=== PATIENT | male | born 1955 | race Caucasian/White ===

== ENCOUNTER 2016-06-22 13:25 | Emergency (ER) | payer BC ==
[~2016-06-22] VITALS: Ht 188 cm; Wt 104.3 kg
[2016-06-22 13:30] VITALS: TEMP 36.8; Ht 188 cm; Wt 104.3 kg
[2016-06-22] MEDS ORDERED: ATOR-22 PO (13:57)
--- NOTE | 2016-06-22 13:57 | EMERGENCY ROOM VISIT NOTE ---
History First contact with patient: 13:32 Chief Complaint: RASH Stated Complaint: SHINGLES NEAR LEFT EYE History of Present Illness The patient is a 60 year old male who presents to the Emergency Room with complaints of shingles near the left eye. The patient reports that he has had a rash on the left forehead for the past 5 days. He states it is painful and rates the discomfort a 4/10. The patient was seen by his primary care provider yesterday and diagnosed with shingles. He states he was given a prescription for Bactrim and an anti-itch cream. He was not given a prescription for an antiviral medication. The patient reports that he was told if the rash gets closer to his eye, he should come here for evaluation. The patient reports that the rash has spread slightly towards his eyelid. He denies any difficulty with vision or pain in the eye itself. The patient denies any fevers/chills, numbness or weakness. Review of Systems A complete 10-point Review of Systems was discussed with the patient, with pertinent positives and negatives listed in the History of Present Illness. All remaining Review of Systems questions can be considered negative unless otherwise specified. Social History Smoking Status: Never Smoker Current/Historical Medications Scheduled Atorvastatin (Lipitor), 20 MG PO DAILY Valacyclovir Hcl (Valtrex), 1,000 MG PO TID Allergies Coded Allergies: No Known Allergies (Unverified , 06/22/16) Physical Exam Vital Signs Date Time Temp Pulse Resp B/P Pulse Ox O2 Delivery O2 Flow Rate FiO2 06/22/16 14:09 82 16 124/81 94 06/22/16 13:30 36.8 94 18 123/79 94 Room Air Right Eye Acuity: 20/20 Left Eye Acuity: 20/20 Physical Exam VITALS: Vitals are noted on the nurse's note and reviewed by myself. Vital signs stable. GENERAL: This is a 52-year-old male, in no acute distress, nondiaphoretic, well- developed well-nourished. SKIN: There is an erythematous vesicular rash to the left forehead which extends to the upper eyelid. There is an area of central erythema and mild edema. EYES: PERRLA, EOMs intact. Visual acuity 20/20 bilaterally. Slit-lamp examination revealed no corneal defects. There was no uptake of fluorescein stain seen under UV light. HEART: Regular rate and rhythm without murmurs gallops or rubs. LUNGS: Clear to auscultation bilaterally without wheezes, rales or rhonchi. NEURO: Patient was alert and oriented to person place and time. Medical Decision & Procedures Medical Decision The patient was evaluated as above. He was diagnosed with herpes zoster yesterday. The patient was sent here for concern about possible ocular involvement. Slit lamp examination fortunately did not reveal any corneal lesions. However, the patient will need very close follow-up with both his primary care provider and dielectric tester. Although the patient has had symptoms for approximately 5 days, I did feel that it may be beneficial to start him on an antiviral due to the close proximity of the patient's eye. He was given a prescription for Valtrex. He is instructed to return for any worsening of condition or new/concerning symptoms. He verbalized understanding why assessment and treatment plan was discharged home in good condition. Impression Primary Impression: Herpes zoster Departure Information Dispostion Home / Self-Care Condition GOOD Prescriptions Valacyclovir Hcl (VALTREX) 1 Gm Tab 1000 MG PO TID for 7 Days, #21 TAB Prov: Kimberly Travis .AYLIN 06/22/16 Referrals Diann Veloz M.D. (PCP) Patient Instructions [facility] Additional Instructions Valtrex as prescribed. Follow-up with your primary care provider tomorrow as scheduled. You should also follow-up with your established dielectric tester this week. Return to the emergency department with any worsening symptoms or eye involvement as we discussed.
[2016-06-22] MEDS ORDERED: VALA1TAB2 PO (14:01)
[2016-06-22 14:09] VITALS: BP 124/81; PULSE 82; O2SAT 94
== END 2016-06-22 14:10 | disposition home or self-care (01) ==
LOC: C.EDB 13:26 → C.EDD 14:10
DX: B02.9 Zoster without complications (principal); Z79.899 Other long term (current) drug therapy

== ENCOUNTER → 2016-08-30 | Outpatient (CLI) | payer BC ==
[~2016-08-30] MED LIST: ATOR-22 PO
[2016-08-30 09:57] LABS: % FREE PSA 15.9 %; FREE PSA 1.75 ng/ml
== END | disposition home or self-care (01) ==
LOC: C.LAB 07:17
PROVIDERS: ATTEND Urology
DX: N40.1 Benign prostatic hyperplasia with lower urinary tract symptoms (principal)

== ENCOUNTER → 2016-09-13 | Outpatient (CLI) | payer BC | END | disposition home or self-care (01) | LOC: C.LABSPEC 16:43 | PROVIDERS: ATTEND Nurse Practitioner Family | DX: N40.1 Benign prostatic hyperplasia with lower urinary tract symptoms (principal); R35.0 Frequency of micturition ==

== ENCOUNTER → 2016-12-21 | Outpatient (CLI) | payer BC ==
--- NOTE | 2016-12-21 14:25 | DIAGNOSTIC IMAGING REPORT ---
(TESTICULAR) SCROTUM-CONT CLINICAL HISTORY: 61 years-old Male presenting with scrotal lesion. TECHNIQUE: Real-time grayscale and color and spectral Doppler ultrasound imaging of the scrotum was performed. COMPARISON: None. FINDINGS: Right testis: Normal echogenicity and size, measuring 4.6 x 2.8 x 3.4 cm. Normal color Doppler flow and arterial and venous waveforms in the testicular parenchyma. Epididymis normal without evidence of hyperemia. Large hydrocele with low-level echoes. Left testis: Normal echogenicity and size, measuring 4.1 x 2.8 x 2.8 cm. Normal color Doppler flow and arterial and venous waveforms in the testicular parenchyma. Epididymis normal. Trace hydrocele. Bilaterally symmetric perfusion of the testes. IMPRESSION: No evidence of testicular torsion. No evidence of an intratesticular mass. Large right hydrocele. Low-level echoes within the hydrocele may indicate inspissated debris. Electronically signed by: Todd Urena M.D. 12/21/2016 2:23 PM Dictated Date/Time: 12/21/2016 2:21 PM
== END | disposition home or self-care (01) ==
LOC: C.ULTR 13:45
PROVIDERS: ATTEND Urology
DX: N43.3 Hydrocele, unspecified (principal)